=== PATIENT | female | born 1970 | race Caucasian/White ===

== ENCOUNTER → 2019-11-07 | Outpatient (CLI) | payer BC, SELFPAY ==
[2019-11-07 13:54] VITALS: BMI 35.1
[2019-11-07 15:04] LABS: Absolute Lymphocyte Count 2.33 X10^3/uL (0.83-4.51); Absolute Neutrophil Count 4.4 X10^3/uL (2.0-7.7); Basophil# 0.08 X10^3/uL; Eosinophil# 0.75 X10^3/uL; Eosinophils% 8.9 % (0-5); Hematocrit 38.2 % (37-47); Hemoglobin 11.9 g/dL (12.0-15.0); Lymphocyte # 2.33 X10^3/ul (4.0); Lymphocyte % 27.7 % (19-41); Mean Corp Hgb Conc 31.2 g/dL (32-36); Mean Corpuscular Hgb 27.9 pg (27.0-32.0); Mean Corpuscular Volume 89.7 fL (81-99); Mean Platelet Vol. 10.2 fl (6.2-12.0); Monocyte# 0.78 X10^3/uL; Monocyte% 9.3 % (0-10); NRBC Flagged by Analyzer 0 % (0-5); Neutrophil # 4.44 X10^3/uL (2.7-7.7); Neutrophil % 52.9 % (47-70); Platelet Count 426 K/mm3 (150-450); RBC Distribution Width CV 13.8 % (11.6-14.6); RBC Distribution Width SD 45.5 fl (35.1-43.9); Red Blood Count 4.26 M/mm3 (4.2-5.4); White Blood Count 8.4 K/mm3 (4.4-11.0)
[2019-11-07 15:40] LABS: Thyroid Stim Hormone (TSH) 0.83 uIU/mL (0.358-3.74)
== END | disposition home or self-care (01) ==
PROVIDERS: PCP Family Medicine; Referring Provider Obstetrics & Gynecology; Visit Provider Obstetrics & Gynecology
DX: N93.9 Abnormal uterine and vaginal bleeding, unspecified (principal)
CPT/HCPCS: 36415; 84443; 85025

== ENCOUNTER → 2019-11-28 | Outpatient (CLI) | payer BC, SELFPAY ==
[2019-11-07 13:54] VITALS: BMI 35.1
--- NOTE | 2019-11-28 | EMB_PTH ---
PATIENT: CLAUDINE LEMA LOC: [facility] U#:[id number] AGE/SX: 49/F ROOM: RE11/28/[address]: Dr. Hannah Regan MD : 1970 BED: DIS: 11/28/2019 SPEC #: [id number] RECD: 11/28/19 16:32 STATUS: STEFANY JUAN #: [id number] DICKSON: 11/28/19 00:[address]: Hannah Regan DEPT: SURGICAL PATHOLOGY RECD BY: Marc Arora ENTERED: 11/29/19 07:29 SP TYPE: ENDOM BX/C MIKA DR: Dr. Sukumar Morgan MD Tissues: Endometrium, NOS Procedures: Surgery Specimen Level IV HEADER OPERATION: Endometrial biopsy PRE-OP DIAGNOSIS: Abnormal uterine bleeding TISSUE SUBMITTED: Endometrial biopsy MICROSCOPIC DIAGNOSIS Endometrial biopsy: Proliferative endometrium. SJ:juan 11/30/19 MICROSCOPIC DESCRIPTION Slides are reviewed. GROSS DESCRIPTION Received is one container labeled with the patient's name and not further designated. The specimen consists of multiple irregular and elongated fragments of azul tissue that in aggregate measure 3 x 1 x 0.1 cm. The specimen is totally submitted in one cassette. / AM:juan 11/29/19 TC:4 CPT: 40344
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
== END | disposition home or self-care (01) ==
PROVIDERS: PCP Family Medicine; Referring Provider Obstetrics & Gynecology; Visit Provider Obstetrics & Gynecology
DX: N93.9 Abnormal uterine and vaginal bleeding, unspecified (principal)
CPT/HCPCS: 76830; 76856; 88305

== ENCOUNTER 2020-01-02 06:48 | Day surgery (SDC) | payer BC, SELFPAY ==
[2019-11-28 10:48] VITALS: BMI 35.2
[2019-12-07 15:49] VITALS: BMI 34.0
[2019-12-27 15:39] LABS: Mean Corp Hgb Conc 31.6 g/dL (32-36); Mean Corpuscular Volume 88.8 fL (81-99); Mean Platelet Vol. 10.6 fl (6.2-12.0); Platelet Count 463 K/mm3 (150-450); RBC Distribution Width CV 14.6 % (11.6-14.6); RBC Distribution Width SD 47.4 fl (35.1-43.9); Red Blood Count 4.28 M/mm3 (4.2-5.4); White Blood Count 8.5 K/mm3 (4.4-11.0)
[2019-12-27 15:53] LABS: Magnesium 2.2 mg/dL (1.6-2.6)
[2020-01-02] VITALS (12 sets, daily range): BP systolic 89–130; BP diastolic 43–90; PULSE 46–84; RESP 16–18; TEMP 36.3–36.7; O2SAT 97–100
--- NOTE | 2020-01-02 07:18 | HP.PCM_ITS ---
- Problem List (1) Abnormal uterine bleeding Status: Acute Comment: thyroid controlled. s/p labs, us, and EMB. failed medical management plan hysterectomy (2) Adenomyosis Status: Chronic Comment: 10 cm uterus plan TVH BS, s/p essures. plan SDS (3) Cold sore Status: Chronic (4) Hypothyroidism Status: Chronic History and Physical Date of Admission: 01/02/20 Intake Vital Signs 12/07/19 Height 5 ft 7 in 12/07/19 Weight: 217 lb 12/07/19 BMI 34.0 12/07/19 BP 126/82 H 12/07/19 BMI 35.1 Intake Visit Reasons: TVH BS Chief Complaint: pre op TV BS Executive Administrative Asst Required: No Is patient in pain?: No Allergies No Known Allergies Allergy (Verified 12/07/19 15:49) Medications levothyroxine 150 mcg capsule 150 mcg PO DAILY 11/07/19 [History Confirmed 12/07/19] metronidazole 0.75 % vaginal gel 1 appful VAGINAL .twice weekly 180 Days #70 g 11/07/19 [Rx Confirmed 12/07/19] valacyclovir 500 mg tablet 500 mg PO DAILY PRN 11/07/19 [History Confirmed 12/07/19] Is last menstrual period known: No Post menopausal: No Patient : No : No PFSH Medical History Cold sore (Chronic) Hypothyroidism (Chronic) Abnormal Pap smear of cervix (Acute) Surgical History Status post colposcopy (Acute) S/P dilation and curettage (Resolved) S/P tonsillectomy (Resolved) Family History Mother Breast cancer Throat cancer Social History (Updated 12/08/19 @ 04:[address] Hannah Regan MD) Smoking Status: Never smoker alcohol intake: never substance use type: does not use caffeine: Yes what type of physical activity do you participate in: none seatbelt use: always do you feel safe at home: Yes additional social history: -Edward Patient works at [employer] [facility] BS: Details: CLAUDINE LEMA is a 49 year old who presents for preop visit for hysterectomy. she has AUB and adenomyosis. Female Reproductive History Menopausal Symptoms: No night sweats Pregancy History 4 Elective abortions Hx Para 4 Spontaneous abortions Hx # Term Pregnancies Ectopic pregnancies Hx # Pregnancies Multiple births # of living children Past Pregnancies Del. Date Name GA/Weeks Outcome Route Bth Weight Gen Labor Lgth Anesthesia Del Locatn Provider FOB Unknown [place]-1990 Unknown Mick-1991 Unknown Shante-2000 Unknown José-2005 ROS Const Constitutional: Denies fatigue, night sweats, weight gain or weight loss ENT ENT: Reports system reviewed and no additional complaints, except as docu Cardio Card: Denies chest pain Resp Resp: Denies cough or dyspnea GI GI: Reports as per HPI; denies constipation, nausea or vomiting : Reports as per HPI; denies nipple discharge, vaginal discharge, vaginal dryness, vaginal odor or vaginal itching Musc Musc: Denies joint pain, back pain or muscle weakness Skin Skin/Breast: Denies nipple discharge Neuro Neuro: Reports system reviewed and no additional complaints, except as docu Psych Psych: Reports system reviewed and no additional complaints, except as docu Endo Endo: Denies cold intolerance, excessive sweating, heat intolerance or increased thirst Juan/Lymph Hematologic/Lymphatic: Denies easy bleeding, Denies easy bruising, Denies enlarged lymph nodes Exam Const General: cooperative, healthy appearing, comfortable, no acute distress, well developed Orientation: alert [facility] Head: normal to inspection, normocephalic Ears: hearing grossly normal bilaterally, external ears normal Nose: external nose normal, nares normal Face and sinus: normal facial exam Neck Neck: normal visual inspection, no lymphadenopathy Thyroid: thyroid normal Chest Chest palpation & inspection: normal inspection of the chest Resp Effort & Inspection: normal respiratory effort Cardio Rate: regular rate Rhythm: regular rhythm GI Inspection: normal to inspection, non-distended Palpation: soft, no hepatosplenomegaly Musc Other: gross motor intact no deficits, full bilateral strength Skin General: no rashes or lesions noted Neuro General: alert, awake, moves all extremities, no focal motor deficits Motor: muscle tone normal throughout Extrem General: normal to inspection, no pedal edema Psych Appearance: grossly normal Mental Status: mental status grossly normal Affect: normal affect Speech and Movement: speech and movement normal Assessment & Plan Problems 1. Adenomyosis N80.0 10 cm uterus plan TVH BS, s/p essures. plan SDS 2. Abnormal uterine bleeding N93.9 thyroid controlled. s/p labs, us, and EMB. failed medical management plan hysterectomy Plan After discussing the patient's diagnosis and treatment plan options, patient wishes to proceed with surgical management. I have discussed with the patient the risks, benefits, and alternatives of the procedure which include but are not limited to risks of anesthesia, bleeding, infection, possible damage to bowel, bladder, or surrounding vasculature which could lead to additional surgery to evaluate any complications. Patient agrees to procedure and wishes to proceed. ACOG/uptodate references given for additional information regarding procedure. Coding Level of Care Code No Charge Diagnoses Adenomyosis N80.0 Abnormal uterine bleeding N93.9 UPDATE- I have seen the patient and performed any clinically relevant updates to the history and physical exam. Hannah Regan MD
[2020-01-02 07:22] LABS: Internal QC Validated? YES +Cl - CLEAR BKGD; Pregnancy, Urine Negative Negative
[2020-01-02] MEDS: Lactated Ringers 1,000 ML 40 ML IV ×2 (07:54→09:45)
[2020-01-02] MEDS: dexAMETHasone 10 MG/ML Vial 8 MG IV (07:54)
[2020-01-02] MEDS: Scopolamine 1mg/72hr Patch 1 PATCH TRANSDERM. (07:56)
[2020-01-02] MEDS: Gabapentin 600 MG Tablet PO (07:57)
[2020-01-02] MEDS: Acetaminophen 500 MG Tablet 1000 MG PO (07:57)
[2020-01-02] MEDS: Phenazopyridine 95 MG Tablet 190 MG PO (07:58)
[2020-01-02] MEDS: Celecoxib 200 MG Capsule 400 MG PO (07:59)
[2020-01-02 08:06] LABS: Bedside Glucose 61 mg/dL (70-110)
--- NOTE | 2020-01-02 08:34 | PCM.OPRPT ---
Problem List (1) Abnormal uterine bleeding Status: Acute Comment: thyroid controlled. s/p labs, us, and EMB. failed medical management plan hysterectomy (2) Adenomyosis Status: Chronic Comment: 10 cm uterus plan TVH BS, s/p essures. plan SDS (3) Cold sore Status: Chronic (4) Hypothyroidism Status: Chronic Report of Operation Date of Procedure: 01/02/20 Pre-Operative Diagnosis: AUB, pelvic pain Post-Operative Diagnosis: same Surgery/Procedure Performed:: tvh bs Description of Surgical Findings:: nl uterus tubes ovaries social security specialist: Susana Gorman Type of Anesthesia:: General Special Medications: none Specimen's removed: uterus tubes Drains: anand Estimated Blood Loss (mL): 100 Fluids Replaced: crystalloid Description of Procedure: Patient was taken to the operating room and was placed under general anesthesia was prepped and draped in normal sterile fashion in the dorsal lithotomy position. Preoperative antibiotics and SCDs and Anand catheter was placed inside the bladder. Weighted speculum was placed in the vagina and the anterior and posterior lip of the cervix was grasped with 2 Carolina clamps and circumferentially injected with dilute vasopressin. A circumferential incision was made with a scalpel and the posterior cul-de-sac was entered into sharply and a longneck speculum was placed. The anterior cul-de-sac was also dissected down and entered into sharply and the uterosacral ligaments were clamped cut and suture ligated bilaterally followed by the cardinal ligaments which were Clamped cut and suture ligated bilaterally with 0 Monocryl. The uterus serially descended and progressive bites were taken bilaterally up to the level of the utero-ovarian ligament bilaterally which was clamped transected and double ligated with 0 Monocryl suture and 0 Vicryl free tie. Bilateral fallopian tubes and ovaries were well visualized and noted be within normal limits and the bilateral fallopian tubes were transected across the base with a Pina clamp and removed and sutured with 0 Vicryl suture. Excellent hemostasis was noted. Posterior peritoneum was reapproximated with 2-0 Vicryl and a modified Bass stitch was placed through the posterior vaginal cuff and bilateral uterosacral ligaments across the posterior cul-de-sac skimming along to provide apical support to the vagina. The vagina was closed with [id number] 0 Vicryl pop offs including the posterior and anterior peritoneum in the reapproximation. Excellent hemostasis was noted. All instruments removed from the vagina clear urine was noted at the end of the procedure and patient was awoken and taken recovery in stable condition. Grafts/Implants Used: none - Complications none - Admit VTE Documentation VTE Present on Admission: No VTE Mechan Device Prophylaxis: SCD's VTE Pharm Prophylaxis ordered?: Yes Multi Select Codes - Urinary/Genital Urinary/Genital CPT Codes: 81979 TVH+BS/O <250gr uterus
[2020-01-02] MEDS: Lactated Ringers 1,000 ML 70 ML IV ×3 (08:40→16:30)
[2020-01-02] MEDS: Cefazolin 2 GM in 0.9% Normal Saline 100 ML IV (08:54)
--- NOTE | 2020-01-02 09:00 | HYST_PTH ---
PATIENT: CLAUDINE LEMA LOC: [facility] U#:[id number] AGE/SX: 49/F ROOM: RE01/02/[address]: Dr. Hannah Regan MD : 1970 BED: DIS: 01/02/2020 SPEC #: [id number] RECD: 01/02/20 10:42 STATUS: STEFANY JUAN #: [id number] DICKSON: 01/02/20 09:[address]: Hannah Regan DEPT: SURGICAL PATHOLOGY RECD BY: Roz Minaya ENTERED: 01/02/20 11:32 SP TYPE: HYSTERECT OTHR DR: Dr. Sukumar Morgan MD Tissues: Uterus, NOS Procedures: Surgery Specimen Level V HEADER OPERATION: ERAS, vaginal hysterectomy, salpingectomy PRE-OP DIAGNOSIS: Abnormal uterine bleeding, adenomyosis TISSUE SUBMITTED: Uterus, bilateral fallopian tubes MICROSCOPIC DIAGNOSIS Uterus, hysterectomy: Cervix - mild chronic inflammation and nabothian cyst. Endometrium - proliferative endometrium. Myometrium - adenomyosis. Right and left fallopian tubes - benign paratubal cyst. AM:juan 01/03/20 MICROSCOPIC DESCRIPTION Slides are reviewed. GROSS DESCRIPTION Received in fixative is one container labeled with the patient's name and designated uterus, bilateral fallopian tubes. The specimen consists of a hysterectomy specimen consisting of uterus with cervix and detached bilateral fallopian tubes. The uterus with cervix weighs 116 gm and measures 9.5 x 6 x 5 cm. The serosal surface is azul, glistening. The ectocervical mucosa is unremarkable. The external os is oval in contour. The endocervical canal measures 3 cm in length and the endocervical mucosa is azul, glistening and unremarkable. The triangular endometrial cavity measures 4.5 cm in length and up to 2.5 cm in width. The endometrium is azul, glistening without any mass lesion and measures up to 0.3 cm in thickness. Sections of the cervix reveal a few cysts filled with mucoid material. Sections of the myometrial wall do not reveal any mass lesion. Serial sections reveal metallic coiled device at both cornu consistent with Essure device. The fallopian tubes are not identified as right or left. One of the fallopian tubes measure 5 cm in length and up to 0.5 cm in diameter. Sections reveal unremarkable cut surfaces. The second fallopian tube measures 2.5 cm in length and 0.5 cm in diameter. Sections do not reveal any mass lesion. Sections of the fallopian tube do not reveal metallic coiled device/Essure device. Licensed Pesticide Applicator sections are submitted in eight cassettes as follows: 1 - anterior cervix, 2 - posterior cervix, 3 & 4 - anterior uterine wall, 5 & 6 - posterior uterine wall, 7 - one fallopian tube, 8 - second fallopian tube, entirely submitted. / NAZANIN:juan 01/02/20 TC:5 CPT: 00067
[2020-01-02] MEDS: Vasopressin 20 UNITS/ML Vial (09:16)
--- NOTE | 2020-01-02 10:05 | PCM.DC.VHY ---
Discharge Diet: No Restrictions Discharge Activity: Return to Normal Activity, May Not Drive, May Shower May resume sexual activity in: 6-8 weeks Call your doctor if your incision/area has: Continuous Slow Oozing, Sudden Increased Bleeding, Increased Pain/ Swelling, Increased Redness, Foul Smelling Discharge Call your doctor if you observe: Fever of 101 or Higher, Inability to urinate, Inability to have a bowel movement, Using more than one pad per hour Allergies/Adverse Reactions: Allergies No Known Allergies Allergy (Verified 01/02/20 07:46) Medications to take at Discharge levothyroxine 150 mcg capsule 150 mcg PO DAILY 11/07/19 metronidazole 0.75 % vaginal gel 1 appful VAGINAL .twice weekly 180 Days #70 g 11/07/19 valacyclovir 500 mg tablet 500 mg PO DAILY PRN 11/07/19 metroNIDAZOLE [Flagyl] 500 mg PO Q8H 12/25/19 Naproxen [Naprosyn] 250 - 500 mg PO Q8H PRN PRN #30 tab 01/02/20 Oxycodone HCl/Acetaminophen [Percocet 5-325] 1 - 2 tab PO Q6H PRN PRN 7 Days #15 tab 01/02/20 The following prescriptions were given: Naproxen [Naprosyn] 250 - 500 mg PO Q8H PRN PRN #30 tab PRN Reason: MILD PAIN Transmission Status: Received by [facility] Oxycodone HCl/Acetaminophen [Percocet 5-325] 1 - 2 tab PO Q6H PRN PRN 7 Days #15 tab PRN Reason: Pain Transmission Status: Received by [facility] Primary Care Physician: Sukumar Morgan MD [Primary Care Provider] - Test Results: Test results from this visit will be discussed in further detail at your follow-up appointment, if applicable. Please Follow Up With: Hannah Regan MD - [phone]
[2020-01-02] MEDS: Ketorolac 30 MG/ML Syringe IV (12:49)
[2020-01-02 14:20] LABS: Hematocrit 38.9 % (37-47); Hemoglobin 11.9 g/dL (12.0-15.0); Mean Corp Hgb Conc 30.6 g/dL (32-36); Mean Corpuscular Hgb 27.9 pg (27.0-32.0); Mean Corpuscular Volume 91.3 fL (81-99); Mean Platelet Vol. 10.5 fl (6.2-12.0); Platelet Count 346 K/mm3 (150-450); RBC Distribution Width CV 14.5 % (11.6-14.6); RBC Distribution Width SD 48.5 fl (35.1-43.9); Red Blood Count 4.26 M/mm3 (4.2-5.4); White Blood Count 11.5 K/mm3 (4.4-11.0)
== END 2020-01-02 17:00 | disposition home or self-care (01) ==
LOC: SDC 06:51 → AC 06:52
PROVIDERS: Anesthesiology; PCP Family Medicine; Referring Provider Obstetrics & Gynecology; Visit Provider Obstetrics & Gynecology
PROC: (CPT 58260; principal; 2020-01-02 08:40)
DX: N80.0 Endometriosis of uterus (principal); N88.8 Other specified noninflammatory disorders of cervix uteri; N72 Inflammatory disease of cervix uteri; N83.8 Other noninflammatory disorders of ovary, fallopian tube and broad ligament; E03.9 Hypothyroidism, unspecified; Z20.828 Contact with and (suspected) exposure to other viral communicable diseases; Z79.899 Other long term (current) drug therapy; Z87.891 Personal history of nicotine dependence
CPT/HCPCS: 00944; 58262; 36415; 81025; 82962; 83735; 85027; 86850; 86900; 86901; 87635; 88307; C9803; J7040; J7120; J2405; U0003

== ENCOUNTER → 2020-01-15 11:13 | Outpatient (CLI) | payer BC, SELFPAY ==
[2020-01-15 11:13] VITALS: BMI 35.2
[2020-01-15 11:37] LABS: Absolute Lymphocyte Count 2.42 X10^3/uL (0.83-4.51); Absolute Neutrophil Count 4.4 X10^3/uL (2.0-7.7); Basophil# 0.09 X10^3/uL; Basophil% 1.1 % (0-1); Eosinophil# 0.63 X10^3/uL; Eosinophils% 7.6 % (0-5); Hematocrit 38.6 % (37-47); Hemoglobin 12.3 g/dL (12.0-15.0); Lymphocyte # 2.42 X10^3/ul (4.0); Lymphocyte % 29.2 % (19-41); Mean Corp Hgb Conc 31.9 g/dL (32-36); Mean Corpuscular Hgb 28.1 pg (27.0-32.0); Mean Corpuscular Volume 88.3 fL (81-99); Mean Platelet Vol. 9.7 fl (6.2-12.0); Monocyte# 0.74 X10^3/uL; Monocyte% 8.9 % (0-10); NRBC Flagged by Analyzer 0 % (0-5); Neutrophil # 4.39 X10^3/uL (2.7-7.7); Platelet Count 436 K/mm3 (150-450); RBC Distribution Width CV 13.8 % (11.6-14.6); RBC Distribution Width SD 44.9 fl (35.1-43.9); Red Blood Count 4.37 M/mm3 (4.2-5.4); White Blood Count 8.3 K/mm3 (4.4-11.0)
[2020-01-15 19:32] LABS: Xtra Tube EP Lab EXTRA TUBE
== END ==
PROVIDERS: PCP Family Medicine; Referring Provider Nurse Practitioner Women's Health; Visit Provider Nurse Practitioner Women's Health
DX: R42 Dizziness and giddiness (principal)
CPT/HCPCS: 85025

== ENCOUNTER → 2022-09-08 | Outpatient (CLI) | payer BC, SELFPAY ==
[2022-09-08 11:47] LABS: Estradiol 23.9 pg/mL; Follicle Stimulating Hormone 74.7 mIU/mL
== END | disposition home or self-care (01) ==
PROVIDERS: PCP Family Medicine; Referring Provider Nurse Practitioner Women's Health; Visit Provider Nurse Practitioner Women's Health
DX: N95.1 Menopausal and female climacteric states (principal)
CPT/HCPCS: 36415; 82670; 83001

== ENCOUNTER → 2023-04-22 | Outpatient (CLI) | payer BC, SELFPAY ==
--- NOTE | 2023-04-22 11:30 | LES_PTH ---
PATHOLOGY RESULTS PATIENT: CLAUDINE LEMA LOC: [facility]#:[id number] AGE/SX: 52/F ROOM: RE04/22/[address]: Dr. Jonas Agustin MD : 1970 BED: DIS: 04/22/2023 SPEC #: [id number] RECD: 04/23/23 06:57 STATUS: STEFANY MARTINEZ #: [id number] DICKSON: 04/22/23 11:[address]: Jonas Agustin DEPT: SURGICAL PATHOLOGY RECD BY: Willow Hedrick ENTERED: 04/23/23 06:58 SP TYPE: Lesion OTHR DR: Dr. Sukumar Morgan MD Tissues: Skin of eyelid, NOS Procedures: Surgery Specimen Level IV HEADER OPERATION: Right lower eyelid lesion PRE-OP DIAGNOSIS: Right lower eyelid lesion, possible inclusion cyst TISSUE SUBMITTED: Right lower eyelid lesion MICROSCOPIC DIAGNOSIS Right lower eyelid lesion, biopsy: Simple ductal cyst (cyst of Moll gland). Negative for malignancy. NAZANIN:juan 04/26/2023 MICROSCOPIC DESCRIPTION Slides are reviewed. GROSS DESCRIPTION Received in fixative is one container labeled with the patient's name and designated right lower eyelid. The specimen consists of a piece of azul-white skin measuring 0.2 x 0.2 x 0.1 cm. The specimen is totally submitted in one cassette. / NAZANIN:juan 04/23/2023 TC:5 CPT: 53122
== END | disposition home or self-care (01) ==
PROVIDERS: PCP Family Medicine; Visit Provider Ophthalmology
DX: H02.822 Cysts of right lower eyelid (principal)
CPT/HCPCS: 88305